=== PATIENT | male | born 2000 | race Caucasian/White ===

== ENCOUNTER 2023-08-03 12:56 | Emergency (ER) | payer OTHER, MEDICAID ==
[~2023-08-03] VITALS: Ht 190.5 cm; Wt 70.3 kg
[2023-08-03 13:00] VITALS: BP_SYST 115; PULSE 70; RESP 17; TEMP 97; O2SAT 100
[2023-08-03] MEDS ORDERED: IBUP-1971 PO (14:56)
== END 2023-08-03 15:00 | disposition home or self-care (01) ==
LOC: SED 12:56
DX: S33.5XXA Sprain of ligaments of lumbar spine, initial encounter (principal); S80.02XA Contusion of left knee, initial encounter; Z79.899 Other long term (current) drug therapy; V89.2XXA Person injured in unspecified motor-vehicle accident, traffic, initial encounter; Y93.89 Activity, other specified; Y92.89 Other specified places as the place of occurrence of the external cause; Y99.8 Other external cause status
CPT/HCPCS: 72100-TC; 73564; 99284